=== PATIENT | male | born 1960 | race Caucasian/White ===

== ENCOUNTER 2024-03-17 06:16 | Day surgery (SDC) | payer MEDICARE, OTHER, SELFPAY ==
[2024-03-17] VITALS (7 sets, daily range): BP systolic 90–161; BP diastolic 59–92
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
[2024-03-17] MEDS: TYLENOL 1000 MG PO (08:20)
[2024-03-17] MEDS: NORMOSOL-R 1000 IV (08:21)
--- NOTE | 2024-03-17 08:50 | W.SUR.PREOP ---
Pre-Operative Surgical Note
-
I have examined this patient prior to the performance of the scheduled procedure.
The patient's condition is unchanged from the time of the current History and
Physical and the patient is able to undergo the scheduled procedure.
--- NOTE | 2024-03-17 10:09 | W.IMMPOSTOP ---
Addendum entered and electronically signed by Ashkan Nelson MD 03/17/24 10:15:
#[id number]
Original Note:
Surgical Immed Post Op Note
-
Primary Surgeon: Leslie
Assisting Surgeon: None
Pre-op Diagnosis: Umbilical hernia
Post-op Diagnosis: Umbilical hernia, 2 cm
Procedure Performed: Open umbilical herniorrhaphy with mesh; Ventralex ST 6.4 cm round
Anesthesia Type: Monitored anesthetic care with incisional field block 1% lidocaine, 0.25% Marcaine
Specimen / Cultures: None
Estimated Blood Loss: 6 mL
Complications: None immediate
Operative Findings: About a 2 cm fascial defect at the umbilicus. Reducible. Underlay preperitoneal mesh repair, Ventralex ST 6.4 cm round with closure of fascial defect. No significant adhesions or scar tissue encountered from previous history
of laparotomy to affect this operative procedure.
== END 2024-03-17 11:32 | disposition home or self-care (01) ==
LOC: SDS 06:16
PROVIDERS: ATTENDING PHYSICIAN Surgery
DX: K42.9 Umbilical hernia without obstruction or gangrene (principal)
CPT/HCPCS: 49593; C1781